=== PATIENT | female | born 1990 | race Caucasian/White ===

== ENCOUNTER 2019-08-06 12:51 | Emergency (ER) | payer SELFPAY ==
[~2019-08-06] VITALS: Ht 182.9 cm; Wt 127.2 kg
[2019-08-06 13:01] VITALS: BP 156/100
--- NOTE | 2019-08-06 13:15 | PHYS DOC ---
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 Patients work sent her here for evaluation. Patient took Advil before coming to the ED. Rates her pain a 6/10. Review of Systems Review of Systems Musculoskeletal: Coccyx pain. Denies back pain or joint pain [] All other systems were reviewed and found to be within normal limits, except as documented in this note. Allergies Allergies Allergies Coded Allergies Type Severity Reaction Last Updated Verified acetaminophen Allergy Intermediate 08/06/19 Yes bacitracin Allergy Intermediate 08/06/19 Yes neomycin Allergy Intermediate 08/06/19 Yes polymyxin B Allergy Intermediate 08/06/19 Yes Physical Exam Physical Exam Constitutional: Well developed, well nourished, no acute distress, non-toxic appearance. [] HENT: Normocephalic, atraumatic, bilateral external ears normal, oropharynx moist, no oral exudates, nose normal. [] Eyes: PERRLA, EOMI, conjunctiva normal, no discharge. [] Neck: Normal range of motion, no tenderness, supple, no stridor. [] Cardiovascular:Heart rate regular rhythm, no murmur [] Lungs & Thorax: Bilateral breath sounds clear to auscultation [] Abdomen: Bowel sounds normal, soft, no tenderness, no masses, no pulsatile masses. [] Skin: Bruising at coccyx. Warm, dry, no erythema, no rash. [] Back: Coccyx tenderness, no CVA tenderness. [] Extremities: No tenderness, no cyanosis, no clubbing, ROM intact, no edema. [] Neurologic: Alert and oriented X 3, normal motor function, normal sensory function, no focal deficits noted. [] Psychologic: Affect normal, judgement normal, mood normal. [] Current Patient Data Vital Signs Vital Signs Date Time Temp Pulse Resp B/P (MAP) Pulse Ox O2 Delivery O2 Flow Rate FiO2 08/06/19 13:01 98.4 99 20 156/100 (118) 100 Room Air 98.4 Lab Values Laboratory Tests Test 08/06/19 13:50 08/06/19 13:59 Urine Collection Type Unknown Urine Color Yellow Urine Clarity Clear Urine pH 5.0 Urine Specific [place] >=1.030 Urine Protein Negative mg/dL (NEG-TRACE) Urine Glucose (UA) Negative mg/dL (NEG) Urine Ketones (Stick) Negative mg/dL (NEG) Urine Blood Negative (NEG) Urine Nitrite Negative (NEG) Urine Bilirubin Small (NEG) Urine Urobilinogen Dipstick 0.2 mg/dL (0.2 mg/dL) Urine Leukocyte Esterase Moderate (NEG) Urine RBC 0 /HPF (0-2) Urine WBC >40 /HPF (0-4) Urine Squamous Epithelial Cells Many /LPF Urine Bacteria Moderate /HPF (0-FEW) Urine Mucus Marked /LPF POC Urine HCG, Qualitative Hcg negative (Negative) EKG EKG [] Radiology/Procedures Radiology/Procedures [] Course & Med Decision Making Course & Med Decision Making Pertinent Labs and Imaging studies reviewed. (See chart for details) Ambulatory with steady gait. Denies numbness or tingling. No saddle paresthesia. States earlier she had tingling down her legs. Tenderness with palpation over coccyx. Bruising is seen at coccyx. No tenderness to cervical spine, thoracic spine, lumbar spine. Denies hitting her head, neck pain, nausea, vomiting, abdominal pain, flank pain, soa, chest pain, dizziness, headache, focal weakness, visual changes. Denies blood thinners. Equal strengths and movements in all extremities. Skin pink warm and dry. Alert and oriented. Dr Son has read xray as no acute findings. Patient to follow up with work comp doctor. [] Dragon Disclaimer Dragon Disclaimer This electronic medical record was generated, in whole or in part, using a voice recognition dictation system. Departure Departure Impression: Primary Impression: Coccyx contusion Additional Impression: UTI (urinary tract infection) Disposition: 01 HOME, SELF-CARE Condition: STABLE Referrals: NO PCP (PCP) Patient Instructions: Contusion Additional Instructions: Take Ibuprofen for pain. Also use Ice. Follow up with work comp doctor or your physician. Scripts Cephalexin (KEFLEX) 500 Mg Capsule 1 CAP PO BID for 7 Days, #14 CAP 0 Refills Prov: MEG LARSONLisa Moon REHAB NURSE 08/06/19 Problem Qualifiers Primary Impression: Coccyx contusion Encounter type: initial encounter Qualified Codes: S30.0XXA - Contusion of lower back and pelvis, initial encounter Additional Impression: UTI (urinary tract infection) Urinary tract infection type: site unspecified Hematuria presence: without hematuria Qualified Codes: N39.0 - Urinary tract infection, site not specified ИВАН LARSON APRN Aug 06, 2019 13:15
[2019-08-06 14:17] LABS: BILIRUBIN,URINE SMALL (NEG); CLARITY,URINE CLEAR; COLOR,URINE YELLOW; NITRITE,URINE NEGATIVE (NEG); PROTEIN,URINE NEGATIVE (NEG-TRACE); UROBILINOGEN,URINE 0.2 mg/dL (0.2 mg/dL)
[2019-08-06 14:33] LABS: BACTERIA,URINE MODERATE /HPF (0-FEW); RBC,URINE 0 /HPF (0-2); SQUAMOUS EPITHELIAL CELL,UR MANY /LPF; WBC,URINE >40 /HPF (0-4)
[2019-08-06] MEDS ORDERED: CEPH-264 PO (15:25)
--- NOTE | 2019-08-06 15:32 | RAD ---
Examination: SACRUM COCCYX 3V History: Fell, pain. Comparison/Correlation: None Findings: Total of 3 images of the sacrum and coccyx were obtained. No acute fracture or bone destruction. Soft tissues are unremarkable. L5-S1 disc space narrowing is present. Impression: No acute process. Consider further imaging if occult process is a persistent concern. Electronically signed by: Heraclio Loving MD (08/06/2019 3:29 PM) [id number]
== END 2019-08-06 15:31 | disposition home or self-care (01) ==
LOC: ER 12:51
DX: S30.0XXA Contusion of lower back and pelvis, initial encounter (principal); N39.0 Urinary tract infection, site not specified; Z88.2 Allergy status to sulfonamides; Z88.1 Allergy status to other antibiotic agents; W01.0XXA Fall on same level from slipping, tripping and stumbling without subsequent striking against object, initial encounter; Y93.89 Activity, other specified; Y92.89 Other specified places as the place of occurrence of the external cause; Y99.8 Other external cause status
CPT/HCPCS: 72220; 81001; 81025; 87086; 99284